=== PATIENT | male | born 1965 | race Caucasian/White ===

== ENCOUNTER 2017-12-20 17:31 | Observation (INO) | payer BC, OTHER ==
[2017-12-20] MEDS ORDERED: Sodium Chloride 0.9% 10 ML Syringe FLUSH PRN (17:56)
[2017-12-20] MEDS ORDERED: Acetaminophen 325 MG Tab PO PRN (17:56)
[2017-12-20] MEDS ORDERED: Albuterol/Ipratropium 3.0-0.5 MG/3 ML Neb Soln NEB PRN (17:56)
[2017-12-20] MEDS ORDERED: Sodium Chloride 0.9% 2.5 ML Syringe FLUSH PRN (17:56)
--- NOTE | 2017-12-20 18:06 | PCM.HP ---
H&P History of Present Illness - General Admit Problem/Dx: Admission Diagnosis/Problem Admission Diagnosis/Problem Hyponatremia - Related Data Allergies/Adverse Reactions: Allergies Allergy/AdvReac Type Severity Reaction Status Date / Time No Known Allergies Allergy Verified 12/20/17 17:46 Home Medications: Home Meds Losartan/Hydrochlorothiazide [Losartan-HCTZ 100-25 MG] 100 mg PO DAILY 12/20/17 [History] Sildenafil [Viagra] 100 mg PO DAILY PRN MDD 100 mg 12/20/17 [History] amLODIPine [Norvasc] 10 mg PO DAILY 12/20/17 [History] Exam - Vital Signs Weight: 189 lb Orders Last 24hrs: Active Orders 24 hr Category Date Time Status Patient Status [ADT] Routine ADT 12/20/17 17:56 Ordered Oxygen Therapy [RC] PRN Care 12/20/17 17:56 Ordered Pulse Oximetry [RC] PRN Care 12/20/17 17:58 Ordered RT Aerosol Therapy [RC] ASDIRECTED Care 12/20/17 18:04 Ordered Up ad Eileen [RC] ASDIRECTED Care 12/20/17 17:56 Ordered VTE/DVT Education [RC] PER UNIT ROUTINE Care 12/20/17 17:56 Ordered Vital Signs [RC] Q4H Care 12/20/17 17:56 Ordered Regular Diet [DIET] Diet 12/20/17 Dinner Ordered Chest 1V Frontal [CR] Routine Exams 12/20/17 17:56 Ordered CBC WITH AUTO DIFF [HEME] Routine Lab 12/20/17 17:56 Ordered COMPREHENSIVE METABOLIC PN,CMP [CHEM] Routine Lab 12/20/17 17:56 Ordered TSH [CHEM] Routine Lab 12/20/17 18:06 Ordered Acetaminophen [Tylenol] Med 12/20/17 17:56 Ordered 650 mg PO Q4H PRN Albuterol/Ipratropium [DuoNeb 3.0-0.5 MG/3 ML] Med 12/20/17 17:56 Ordered 3 ml NEB Q4HRRT PRN Docusate Sodium/Sennosides [Senna Plus] Med 12/20/17 17:56 Ordered 1 tab PO BID PRN Enoxaparin [Lovenox] Med 12/20/17 18:00 Ordered 40 mg SUBCUT Q24H Losartan [Cozaar] Med 12/21/17 09:00 Ordered 100 mg PO DAILY Sodium Chloride 0.9% [Saline Flush] Med 12/20/17 17:56 Ordered 10 ml FLUSH ASDIRECTED PRN Sodium Chloride 0.9% [Saline Flush] Med 12/20/17 17:56 Ordered 2.5 ml FLUSH ASDIRECTED PRN amLODIPine [Norvasc] Med 12/21/17 09:00 Ordered 10 mg PO DAILY Peripheral IV Insertion Adult [OM.PC] Routine Oth 12/20/17 17:56 Ordered Resuscitation Status Routine Resus Stat 12/20/17 17:56 Ordered Medication Orders Acetaminophen (Tylenol) 650 mg PO Q4H PRN PRN Reason: Pain (Mild 1-3)/fever Albuterol/Ipratropium (Duoneb 3.0-0.5 Mg/3 Ml) 3 ml NEB Q4HRRT PRN PRN Reason: Shortness Of Breath/wheezing Amlodipine Besylate (Norvasc) 10 mg PO DAILY ANNAMARIA Senna/Docusate Sodium (Senna Plus) 1 tab PO BID PRN PRN Reason: Constipation
[2017-12-20 18:28] LABS: CHLORIDE,CL 86 mmol/L (98-107); SODIUM,NA 122 mmol/L (136-148)
[2017-12-20] MEDS ORDERED: Sodium Chloride 0.9% 1,000 ML IV SCH (18:45)
[2017-12-20] MEDS ORDERED: Enoxaparin 40 MG/0.4 ML Syringe SUBCUT SCH (19:00)
--- NOTE | 2017-12-20 19:35 | PCM.HP ---
H&P History of Present Illness - General Admit Problem/Dx: Admission Diagnosis/Problem Admission Diagnosis/Problem Hyponatremia Patient 52 y old man presented to Hospital sent from his doctor office due to hyponatriemia on the blood work at 124 and hypokaliemia K 3.3. Patient drinks few beers every evening and it is on hydrochlorothiazide at home 12.5 mg po daily for hypertension. His baseline sodium is in 130' but he reports having hyponatriemia when he was in [facility] and had a shoulder surgery , right shoulder where he was treated with iv NS.His is concerned about him having episodes of confusion or starring . His father of malignant brain tumor and his mother of Alzheimer disease. Had a very close younger brother who recently of [place]. Source of Information: Patient History Limitations: Reports: No Limitations - History of Present Illness Onset of Symptoms: Reports: Today - Related Data Allergies/Adverse Reactions: Allergies Allergy/AdvReac Type Severity Reaction Status Date / Time No Known Allergies Allergy Verified 12/20/17 17:46 Home Medications: Home Meds Losartan/Hydrochlorothiazide [Losartan-HCTZ 100-25 MG] 100 mg PO DAILY 12/20/17 [History] Sildenafil [Viagra] 100 mg PO DAILY PRN MDD 100 mg 12/20/17 [History] amLODIPine [Norvasc] 10 mg PO DAILY 12/20/17 [History] Past Medical History Cardiovascular History: Reports: Hypertension - Past Surgical History Male Surgical History: Reports: None Social & Family History - Family History HEENT: Reports: None Cardiac: Reports: Hypertension Respiratory: Reports: None GI: Reports: None : Reports: None Musculoskeletal: Reports: None Neurological: Reports: None Psychiatric: Reports: None Endocrine/Metabolic: Reports: None Hematologic: Reports: None Immunologic: Reports: None Dermatologic: Reports: None Oncologic: Reports: Brain - Tobacco Use Smoking Status *Q: Former Smoker Years of Tobacco use: 9 Used Tobacco, but Quit: Yes Month/Year Tobacco Last Used: 09/2007 - Caffeine Use Caffeine Use: Reports: Coffee, Soda - Alcohol Use Days Per Week of Alcohol Use: 7 Number of Drinks Per Day: 6 Total Drinks Per Week: 42 Date of Last Drink: 12/19/17 Time of Last Drink: 21:00 - Recreational Drug Use Recreational Drug Use: No H&P Review of Systems - Review of Systems: Review Of Systems: See Below General: Reports: No Symptoms HEENT: Reports: No Symptoms Pulmonary: Reports: No Symptoms Cardiovascular: Reports: No Symptoms Gastrointestinal: Reports: No Symptoms Genitourinary: Reports: No Symptoms Musculoskeletal: Reports: No Symptoms Skin: Reports: No Symptoms Neurological: Reports: Confusion (occasional confusion) Hematologic/Lymphatic: Reports: No Symptoms Immunologic: Reports: No Symptoms Exam - Exam Exam: See Below - Vital Signs Vital Signs: Last Vital Signs Temp 98.4 F 12/20/17 17:56 Pulse 85 12/20/17 17:56 Resp 17 12/20/17 17:56 BP 122/78 12/20/17 17:56 Pulse Ox 95 12/20/17 17:56 Weight: 189 lb - Exam General: Alert, Oriented HEENT: Conjunctiva Clear Neck: Supple, Trachea Midline Lungs: Clear to Auscultation Cardiovascular: Regular Rate, Regular Rhythm, Normal S1, Normal S2 GI/Abdominal Exam: Normal Bowel Sounds Back Exam: Normal Inspection Extremities: Normal Inspection - Patient Data Lab Results Last 24 hrs: Laboratory Results - last 24 hr 12/20/17 12/20/17 12/20/17 Range/Units 17:55 17:55 17:55 WBC 7.74 (4.0-11.0) K/uL RBC 4.29 L (4.50-5.90) M/uL Hgb 14.7 (13.0-17.0) g/dL Hct 39.9 (38.0-50.0) % MCV 93.0 (80.0-98.0) fL MCH 34.3 H (27.0-32.0) pg MCHC 36.8 (31.0-37.0) g/dL RDW Std Deviation 43.0 (28.0-62.0) fl RDW Coeff of [place] 13 (11.0-15.0) % Plt Count 301 (150-400) K/uL MPV 9.00 (7.40-12.00) fL Neut % (Auto) 54.2 (48.0-80.0) % Lymph % (Auto) 27.5 (16.0-40.0) % [place] % (Auto) 15.4 H (0.0-15.0) % Eos % (Auto) 2.3 (0.0-7.0) % Baso % (Auto) 0.6 (0.0-1.5) % Neut # (Auto) 4.2 (1.4-5.7) K/uL Lymph # (Auto) 2.1 (0.6-2.4) K/uL [place] # (Auto) 1.2 H (0.0-0.8) K/uL Eos # (Auto) 0.2 (0.0-0.7) K/uL Baso # (Auto) 0.1 (0.0-0.1) K/uL Nucleated RBC % 0.0 /100WBC Nucleated RBCs # 0 K/uL Sodium 122 L (136-148) mmol/L Potassium 3.0 L (3.5-5.1) mmol/L Chloride 86 L (98-107) mmol/L Carbon Dioxide 25.1 (21.0-32.0) mmol/L BUN 2 L (7.0-18.0) mg/dL Creatinine 0.5 L (0.8-1.3) mg/dL Est Cr Clr Drug Dosing 174.39 mL/min Estimated GFR (MDRD) > 60.0 ml/min Glucose 105 (74-106) mg/dL Calcium 8.7 (8.5-10.1) mg/dL Phosphorus (2.6-4.7) mg/dL Magnesium (1.5-2.0) mg/dL Total Bilirubin 0.4 (0.2-1.0) mg/dL AST 33 (15-37) IU/L ALT 29 (14-63) IU/L Alkaline Phosphatase 57 (46-116) U/L Total Protein 7.7 (6.4-8.2) g/dL Albumin 4.1 (3.4-5.0) g/dL Globulin 3.6 H (2.0-3.5) g/dL Albumin/Globulin Ratio 1.1 L (1.3-2.8) Vitamin B12 (193-986) pg/mL Folate (8.60-58.90) ng/mL TSH 3rd Generation 1.77 (0.36-3.74) uIU/mL Ur Random Sodium (40.0-220.0) mmol/L 12/20/17 12/20/17 12/20/17 Range/Units 17:55 17:55 17:55 WBC (4.0-11.0) K/uL RBC (4.50-5.90) M/uL Hgb (13.0-17.0) g/dL Hct (38.0-50.0) % MCV (80.0-98.0) fL MCH (27.0-32.0) pg MCHC (31.0-37.0) g/dL RDW Std Deviation (28.0-62.0) fl RDW Coeff of [place] (11.0-15.0) % Plt Count (150-400) K/uL MPV (7.40-12.00) fL Neut % (Auto) (48.0-80.0) % Lymph % (Auto) (16.0-40.0) % [place] % (Auto) (0.0-15.0) % Eos % (Auto) (0.0-7.0) % Baso % (Auto) (0.0-1.5) % Neut # (Auto) (1.4-5.7) K/uL Lymph # (Auto) (0.6-2.4) K/uL [place] # (Auto) (0.0-0.8) K/uL Eos # (Auto) (0.0-0.7) K/uL Baso # (Auto) (0.0-0.1) K/uL Nucleated RBC % /100WBC Nucleated RBCs # K/uL Sodium (136-148) mmol/L Potassium (3.5-5.1) mmol/L Chloride (98-107) mmol/L Carbon Dioxide (21.0-32.0) mmol/L BUN (7.0-18.0) mg/dL Creatinine (0.8-1.3) mg/dL Est Cr Clr Drug Dosing mL/min Estimated GFR (MDRD) ml/min Glucose (74-106) mg/dL Calcium (8.5-10.1) mg/dL Phosphorus 3.6 (2.6-4.7) mg/dL Magnesium 1.6 (1.5-2.0) mg/dL Total Bilirubin (0.2-1.0) mg/dL AST (15-37) IU/L ALT (14-63) IU/L Alkaline Phosphatase (46-116) U/L Total Protein (6.4-8.2) g/dL Albumin (3.4-5.0) g/dL Globulin (2.0-3.5) g/dL Albumin/Globulin Ratio (1.3-2.8) Vitamin B12 327 (193-986) pg/mL Folate 12.40 (8.60-58.90) ng/mL TSH 3rd Generation (0.36-3.74) uIU/mL Ur Random Sodium (40.0-220.0) mmol/L 12/20/17 Range/Units 18:47 WBC (4.0-11.0) K/uL RBC (4.50-5.90) M/uL Hgb (13.0-17.0) g/dL Hct (38.0-50.0) % MCV (80.0-98.0) fL MCH (27.0-32.0) pg MCHC (31.0-37.0) g/dL RDW Std Deviation (28.0-62.0) fl RDW Coeff of [place] (11.0-15.0) % Plt Count (150-400) K/uL MPV (7.40-12.00) fL Neut % (Auto) (48.0-80.0) % Lymph % (Auto) (16.0-40.0) % [place] % (Auto) (0.0-15.0) % Eos % (Auto) (0.0-7.0) % Baso % (Auto) (0.0-1.5) % Neut # (Auto) (1.4-5.7) K/uL Lymph # (Auto) (0.6-2.4) K/uL [place] # (Auto) (0.0-0.8) K/uL Eos # (Auto) (0.0-0.7) K/uL Baso # (Auto) (0.0-0.1) K/uL Nucleated RBC % /100WBC Nucleated RBCs # K/uL Sodium (136-148) mmol/L Potassium (3.5-5.1) mmol/L Chloride (98-107) mmol/L Carbon Dioxide (21.0-32.0) mmol/L BUN (7.0-18.0) mg/dL Creatinine (0.8-1.3) mg/dL Est Cr Clr Drug Dosing mL/min Estimated GFR (MDRD) ml/min Glucose (74-106) mg/dL Calcium (8.5-10.1) mg/dL Phosphorus (2.6-4.7) mg/dL Magnesium (1.5-2.0) mg/dL Total Bilirubin (0.2-1.0) mg/dL AST (15-37) IU/L ALT (14-63) IU/L Alkaline Phosphatase (46-116) U/L Total Protein (6.4-8.2) g/dL Albumin (3.4-5.0) g/dL Globulin (2.0-3.5) g/dL Albumin/Globulin Ratio (1.3-2.8) Vitamin B12 (193-986) pg/mL Folate (8.60-58.90) ng/mL TSH 3rd Generation (0.36-3.74) uIU/mL Ur Random Sodium 11.0 L (40.0-220.0) mmol/L Result Diagrams: 12/20/17 17:55 12/20/17 17:55 - Problem List (1) Hyponatremia SNOMED Code(s): 30244366 ICD Code: E87.1 - HYPO-OSMOLALITY AND HYPONATREMIA Status: Acute Current Visit: Yes (2) Hypokalemia SNOMED Code(s): 29500181 ICD Code: E87.6 - HYPOKALEMIA Status: Acute Current Visit: Yes (3) Hypertension SNOMED Code(s): 14802932 ICD Code: I10 - ESSENTIAL (PRIMARY) HYPERTENSION Status: Acute Current Visit: Yes Problem List Initiated/Reviewed/Updated: Yes Orders Last 24hrs: Active Orders 24 hr Category Date Time Status Patient Status [ADT] Routine ADT 12/20/17 17:56 Active Communication Order [RC] ROUTINE Care 12/20/17 18:52 Active Oxygen Therapy [RC] PRN Care 12/20/17 17:56 Active Pulse Oximetry [RC] PRN Care 12/20/17 17:58 Active RT Aerosol Therapy [RC] ASDIRECTED Care 12/20/17 18:04 Active Up ad Eileen [RC] ASDIRECTED Care 12/20/17 17:56 Active Vital Signs [RC] Q4H Care 12/20/17 17:56 Active Regular Diet [DIET] Diet 12/20/17 Dinner Active Chest 1V Frontal [CR] Routine Exams 12/20/17 17:56 Taken Head wo Cont [CT] Routine Exams 12/20/17 18:42 Taken OSMOLALITY - SERUM [REF] Stat Lab 12/20/17 17:55 Received OSMOLALITY - URINE Stat Lab 12/20/17 18:47 Received Acetaminophen [Tylenol] Med 12/20/17 17:56 Active 650 mg PO Q4H PRN Albuterol/Ipratropium [DuoNeb 3.0-0.5 MG/3 ML] Med 12/20/17 17:56 Active 3 ml NEB Q4HRRT PRN Docusate Sodium/Sennosides [Senna Plus] Med 12/20/17 17:56 Active 1 tab PO BID PRN Enoxaparin [Lovenox] Med 12/20/17 19:00 Active 40 mg SUBCUT Q24H Hydrochlorothiazide Med 12/21/17 09:00 Active 25 mg PO DAILY Losartan [Cozaar] Med 12/21/17 09:00 Active 100 mg PO DAILY Potassium Chloride [Klor-Con M20] Med 12/20/17 21:00 Active 40 meq PO BID Sodium Chloride 0.9% [Normal Saline] 1,000 ml Med 12/20/17 18:45 Active IV ASDIRECTED Sodium Chloride 0.9% [Saline Flush] Med 12/20/17 17:56 Active 10 ml FLUSH ASDIRECTED PRN Sodium Chloride 0.9% [Saline Flush] Med 12/20/17 17:56 Active 2.5 ml FLUSH ASDIRECTED PRN amLODIPine [Norvasc] Med 12/21/17 09:00 Active 10 mg PO DAILY Peripheral IV Insertion Adult [OM.PC] Routine Oth 12/20/17 17:56 Ordered Resuscitation Status Routine Resus Stat 12/20/17 17:56 Ordered Medication Orders Acetaminophen (Tylenol) 650 mg PO Q4H PRN PRN Reason: Pain (Mild 1-3)/fever Albuterol/Ipratropium (Duoneb 3.0-0.5 Mg/3 Ml) 3 ml NEB Q4HRRT PRN PRN Reason: Shortness Of Breath/wheezing Amlodipine Besylate (Norvasc) 10 mg PO DAILY ANNAMARIA Enoxaparin Sodium (Lovenox) 40 mg SUBCUT Q24H [facility] Last Admin: 12/20/17 18:58 Dose: 40 mg Hydrochlorothiazide (Hydrochlorothiazide) 25 mg PO DAILY [facility] Sodium Chloride (Normal Saline) 1,000 mls @ 9,999 mls/hr IV ASDIRECTED [facility] Last Admin: 12/20/17 18:56 Dose: 9,999 mls/hr Losartan Potassium (Cozaar) 100 mg PO DAILY [facility] Potassium Chloride (Klor-Con M20) 40 meq PO BID [facility] Stop: 12/21/17 21:01 Senna/Docusate Sodium (Senna Plus) 1 tab PO BID PRN PRN Reason: Constipation Sodium Chloride (Saline Flush) 10 ml FLUSH ASDIRECTED PRN PRN Reason: Keep Vein Open Sodium Chloride (Saline Flush) 2.5 ml FLUSH ASDIRECTED PRN PRN Reason: Keep Vein Open Assessment and plan Hyponatriemia/ hypokaliemia- patient is hypovolemic-will supplement k with KCl 40 Rain po BID , his electrolytes disturbances are likely from beer drinking , will give patient normal saline iv bolus 1000 cc and Will recheck sodium level. Will check magnesium and phosphorus level and will supplement as needed. Will order plasma and urine osmolality and the urinary Na level, will order cxr and CT head. Confusion occasionally- will order the B12 level , folic acid level and Ct of head , patient was adviced to stop drinking Dvt profilaxis- heparin sq
[2017-12-20] MEDS: Potassium Chloride 20 MEQ Tab.ER PO SCH (20:06)
[2017-12-20] MEDS ORDERED: Folic Acid/Vitamin B Complex With C Cap PO SCH (20:15)
[2017-12-20] MEDS ORDERED: Thiamine 100 MG Tab PO SCH (21:00)
[2017-12-20] MEDS ORDERED: Folic Acid 1 MG Tab PO SCH ×2 (21:37→21:40)
[2017-12-20 22:48] LABS: CHLORIDE,CL 92 mmol/L (98-107); SODIUM,NA 127 mmol/L (136-148)
[2017-12-20] MEDS ORDERED: Potassium Chloride 20 MEQ Tab.ER PO STA (23:16)
[2017-12-21] MEDS: Potassium Chloride 20 MEQ Tab.ER PO SCH (08:24)
[2017-12-21] MEDS: amLODIPine 5 MG Tab PO SCH ×2 (08:25→08:27)
[2017-12-21 08:30] LABS: CHLORIDE,CL 101 mmol/L (98-107); SODIUM,NA 133 mmol/L (136-148)
[2017-12-21] MEDS ORDERED: Hydrochlorothiazide 25 MG Tab PO SCH (09:00)
[2017-12-21] MEDS ORDERED: Losartan 50 MG Tab PO SCH (09:00)
--- NOTE | 2017-12-21 11:34 | PCM.DCSUM1 ---
Discharge Summary - Hospital Course Free Text/Narrative:: Patient admitted in the hospital with hyponatriemia at 124 , k is 3.2 . He was sent from clinic as direct admit. Patient drinks beer every evening and also he is on HCTZ. He had hyponatriemia before and was treated with Ns iv. In hospital he looked hypovolemic and was given NS, hctz was helt , K was supplemented. K dropped to a critical low 2.9 and he was p[laced on telemetry. His reports him starring and confused sometimes. Cxr , Ct of the head was ordered, TSh was nl Patient Na and K corrected. His B12 level was relatively low and he was discharged home with supplemental B12 po , f/up repeat level in 2 weeks. he was also given home folic acid 1 mg po and thiamine 100 mg po daily was advised to stop drinking beer. F/up[ plasma osmolality , UA osmolality - Discharge Data Discharge Date: 12/21/17 Discharge Disposition: Home, Self-Care 01 Condition: Good - Discharge Diagnosis/Problem(s) (1) Hyponatremia SNOMED Code(s): 23508379 ICD Code: E87.1 - HYPO-OSMOLALITY AND HYPONATREMIA Status: Acute (2) Hypokalemia SNOMED Code(s): 46106885 ICD Code: E87.6 - HYPOKALEMIA Status: Acute (3) Hypertension SNOMED Code(s): 07644497 ICD Code: I10 - ESSENTIAL (PRIMARY) HYPERTENSION Status: Acute - Patient Instructions Diet: Regular Diet as Tolerated, No Alcoholic Beverages Activity: As Tolerated Driving: May Drive Today Showering/Bathing: May Shower - Discharge Plan Prescriptions/Med Rec: Cyanocobalamin/Folic Acid [Vitamin C14-Xddms Acid] 1 each PO DAILY 30 Days #30 tablet Losartan [Cozaar] 100 mg PO DAILY 90 Days #90 tablet Thiamine Mononitrate [Vitamin B-1] 100 mg PO DAILY 30 Days #30 tablet Home Medications: Home Meds Sildenafil [Viagra] 100 mg PO DAILY PRN MDD 100 mg 12/20/17 [History] amLODIPine [Norvasc] 10 mg PO DAILY 12/20/17 [History] Cyanocobalamin/Folic Acid [Vitamin J78-Frmac Acid] 1 each PO DAILY 30 Days #30 tablet 12/21/17 [Rx] Losartan [Cozaar] 100 mg PO DAILY 90 Days #90 tablet 12/21/17 [Rx] Thiamine Mononitrate [Vitamin B-1] 100 mg PO DAILY 30 Days #30 tablet 12/21/17 [ Rx] Patient Handouts: Hyponatremia, [id number] Referrals: [facility] [Outside] Rosalee Garcia NP [Ordering Only Provider] - 12/31/17 8:00 am - General Info Date of Service: 12/21/17 - Review of Systems General: Reports: No Symptoms HEENT: Reports: No Symptoms Pulmonary: Reports: No Symptoms Cardiovascular: Reports: No Symptoms Gastrointestinal: Reports: No Symptoms Genitourinary: Reports: No Symptoms Musculoskeletal: Reports: No Symptoms Skin: Reports: No Symptoms Neurological: Reports: No Symptoms Psychiatric: Reports: No Symptoms - Patient Data Vitals - Most Recent: Last Vital Signs Temp 98.8 F 12/21/17 08:00 Pulse 86 12/21/17 08:00 Resp 18 12/21/17 08:00 BP 149/89 H 12/21/17 08:27 Pulse Ox 96 12/21/17 08:00 Weight - Most Recent: 189 lb I&O - Last 24 hours: Intake & Output 12/20/17 12/21/17 12/21/17 22:59 06:59 14:59 Intake Total 1000 1061 Output Total 1200 Balance 1000 -139 Lab Results - Last 24 hrs: Laboratory Results - last 24 hr 12/20/17 12/20/17 12/20/17 Range/Units 17:55 17:55 17:55 WBC 7.74 (4.0-11.0) K/uL RBC 4.29 L (4.50-5.90) M/uL Hgb 14.7 (13.0-17.0) g/dL Hct 39.9 (38.0-50.0) % MCV 93.0 (80.0-98.0) fL MCH 34.3 H (27.0-32.0) pg MCHC 36.8 (31.0-37.0) g/dL RDW Std Deviation 43.0 (28.0-62.0) fl RDW Coeff of [place] 13 (11.0-15.0) % Plt Count 301 (150-400) K/uL MPV 9.00 (7.40-12.00) fL Neut % (Auto) 54.2 (48.0-80.0) % Lymph % (Auto) 27.5 (16.0-40.0) % [place] % (Auto) 15.4 H (0.0-15.0) % Eos % (Auto) 2.3 (0.0-7.0) % Baso % (Auto) 0.6 (0.0-1.5) % Neut # (Auto) 4.2 (1.4-5.7) K/uL Lymph # (Auto) 2.1 (0.6-2.4) K/uL [place] # (Auto) 1.2 H (0.0-0.8) K/uL Eos # (Auto) 0.2 (0.0-0.7) K/uL Baso # (Auto) 0.1 (0.0-0.1) K/uL Nucleated RBC % 0.0 /100WBC Nucleated RBCs # 0 K/uL Sodium 122 L (136-148) mmol/L Potassium 3.0 L (3.5-5.1) mmol/L Chloride 86 L (98-107) mmol/L Carbon Dioxide 25.1 (21.0-32.0) mmol/L BUN 2 L (7.0-18.0) mg/dL Creatinine 0.5 L (0.8-1.3) mg/dL Est Cr Clr Drug Dosing 174.39 mL/min Estimated GFR (MDRD) > 60.0 ml/min Glucose 105 (74-106) mg/dL Calcium 8.7 (8.5-10.1) mg/dL Phosphorus (2.6-4.7) mg/dL Magnesium (1.5-2.0) mg/dL Total Bilirubin 0.4 (0.2-1.0) mg/dL AST 33 (15-37) IU/L ALT 29 (14-63) IU/L Alkaline Phosphatase 57 (46-116) U/L Total Protein 7.7 (6.4-8.2) g/dL Albumin 4.1 (3.4-5.0) g/dL Globulin 3.6 H (2.0-3.5) g/dL Albumin/Globulin Ratio 1.1 L (1.3-2.8) Vitamin B12 (193-986) pg/mL Folate (8.60-58.90) ng/mL TSH 3rd Generation 1.77 (0.36-3.74) uIU/mL Ur Random Sodium (40.0-220.0) mmol/L 12/20/17 12/20/17 12/20/17 Range/Units 17:55 17:55 17:55 WBC (4.0-11.0) K/uL RBC (4.50-5.90) M/uL Hgb (13.0-17.0) g/dL Hct (38.0-50.0) % MCV (80.0-98.0) fL MCH (27.0-32.0) pg MCHC (31.0-37.0) g/dL RDW Std Deviation (28.0-62.0) fl RDW Coeff of [place] (11.0-15.0) % Plt Count (150-400) K/uL MPV (7.40-12.00) fL Neut % (Auto) (48.0-80.0) % Lymph % (Auto) (16.0-40.0) % [place] % (Auto) (0.0-15.0) % Eos % (Auto) (0.0-7.0) % Baso % (Auto) (0.0-1.5) % Neut # (Auto) (1.4-5.7) K/uL Lymph # (Auto) (0.6-2.4) K/uL [place] # (Auto) (0.0-0.8) K/uL Eos # (Auto) (0.0-0.7) K/uL Baso # (Auto) (0.0-0.1) K/uL Nucleated RBC % /100WBC Nucleated RBCs # K/uL Sodium (136-148) mmol/L Potassium (3.5-5.1) mmol/L Chloride (98-107) mmol/L Carbon Dioxide (21.0-32.0) mmol/L BUN (7.0-18.0) mg/dL Creatinine (0.8-1.3) mg/dL Est Cr Clr Drug Dosing mL/min Estimated GFR (MDRD) ml/min Glucose (74-106) mg/dL Calcium (8.5-10.1) mg/dL Phosphorus 3.6 (2.6-4.7) mg/dL Magnesium 1.6 (1.5-2.0) mg/dL Total Bilirubin (0.2-1.0) mg/dL AST (15-37) IU/L ALT (14-63) IU/L Alkaline Phosphatase (46-116) U/L Total Protein (6.4-8.2) g/dL Albumin (3.4-5.0) g/dL Globulin (2.0-3.5) g/dL Albumin/Globulin Ratio (1.3-2.8) Vitamin B12 327 (193-986) pg/mL Folate 12.40 (8.60-58.90) ng/mL TSH 3rd Generation (0.36-3.74) uIU/mL Ur Random Sodium (40.0-220.0) mmol/L 12/20/17 12/20/17 12/21/17 Range/Units 18:47 22:26 08:09 WBC (4.0-11.0) K/uL RBC (4.50-5.90) M/uL Hgb (13.0-17.0) g/dL Hct (38.0-50.0) % MCV (80.0-98.0) fL MCH (27.0-32.0) pg MCHC (31.0-37.0) g/dL RDW Std Deviation (28.0-62.0) fl RDW Coeff of [place] (11.0-15.0) % Plt Count (150-400) K/uL MPV (7.40-12.00) fL Neut % (Auto) (48.0-80.0) % Lymph % (Auto) (16.0-40.0) % [place] % (Auto) (0.0-15.0) % Eos % (Auto) (0.0-7.0) % Baso % (Auto) (0.0-1.5) % Neut # (Auto) (1.4-5.7) K/uL Lymph # (Auto) (0.6-2.4) K/uL [place] # (Auto) (0.0-0.8) K/uL Eos # (Auto) (0.0-0.7) K/uL Baso # (Auto) (0.0-0.1) K/uL Nucleated RBC % /100WBC Nucleated RBCs # K/uL Sodium 127 L 133 L (136-148) mmol/L Potassium 2.9 L 4.2 (3.5-5.1) mmol/L Chloride 92 L 101 (98-107) mmol/L Carbon Dioxide 25.7 28.1 (21.0-32.0) mmol/L BUN 3 L 4 L (7.0-18.0) mg/dL Creatinine 0.6 L 0.6 L (0.8-1.3) mg/dL Est Cr Clr Drug Dosing 145.32 145.32 mL/min Estimated GFR (MDRD) > 60.0 > 60.0 ml/min Glucose 95 128 H (74-106) mg/dL Calcium 8.5 8.6 (8.5-10.1) mg/dL Phosphorus (2.6-4.7) mg/dL Magnesium (1.5-2.0) mg/dL Total Bilirubin (0.2-1.0) mg/dL AST (15-37) IU/L ALT (14-63) IU/L Alkaline Phosphatase (46-116) U/L Total Protein (6.4-8.2) g/dL Albumin (3.4-5.0) g/dL Globulin (2.0-3.5) g/dL Albumin/Globulin Ratio (1.3-2.8) Vitamin B12 (193-986) pg/mL Folate (8.60-58.90) ng/mL TSH 3rd Generation (0.36-3.74) uIU/mL Ur Random Sodium 11.0 L (40.0-220.0) mmol/L Med Orders - Current: Current Medications Discontinued Medications Acetaminophen (Tylenol) 650 mg PO Q4H PRN PRN Reason: Pain (Mild 1-3)/fever Albuterol/Ipratropium (Duoneb 3.0-0.5 Mg/3 Ml) 3 ml NEB Q4HRRT PRN PRN Reason: Shortness Of Breath/wheezing Amlodipine Besylate (Norvasc) 10 mg PO DAILY [facility] Last Admin: 12/21/17 08:27 Dose: 5 mg Enoxaparin Sodium (Lovenox) 40 mg SUBCUT Q24H [facility] Last Admin: 12/20/17 18:58 Dose: 40 mg Folic Acid (Folic Acid) 1 mg PO BEDTIME [facility] Folic Acid (Folic Acid) 1 mg PO BEDTIME [facility] Folic Acid (Folic Acid) 1 mg PO BEDTIME [facility] Last Admin: 12/20/17 21:56 Dose: 1 mg Hydrochlorothiazide (Hydrochlorothiazide) 25 mg PO DAILY [facility] Last Admin: 12/21/17 08:25 Dose: 25 mg Sodium Chloride (Normal Saline) 1,000 mls @ 9,999 mls/hr IV ASDIRECTED [facility] Last Admin: 12/20/17 18:56 Dose: 9,999 mls/hr Potassium Chloride 40 meq/ (Sodium Chloride) 1,020 mls @ 125 mls/hr IV ONETIME ONE Stop: 12/21/17 07:25 Last Admin: 12/21/17 00:00 Dose: 125 mls/hr Losartan Potassium (Cozaar) 100 mg PO DAILY [facility] Last Admin: 12/21/17 08:25 Dose: 100 mg Multivit/Ca Carb/B Cmplx/FA/Prenat (Renal Caps Softgel) 1 cap PO DAILY [facility] Last Admin: 12/20/17 21:25 Dose: Not Given Potassium Chloride (Klor-Con M20) 40 meq PO BID [place]NAMAR[place] Stop: 12/21/17 21:01 Last Admin: 12/21/17 08:24 Dose: 40 meq Potassium Chloride (Klor-Con M20) 40 meq PO ONETIME STA Stop: 12/20/17 23:17 Last Admin: 12/21/17 00:01 Dose: 40 meq Senna/Docusate Sodium (Senna Plus) 1 tab PO BID PRN PRN Reason: Constipation Sodium Chloride (Saline Flush) 10 ml FLUSH ASDIRECTED PRN PRN Reason: Keep Vein Open Sodium Chloride (Saline Flush) 2.5 ml FLUSH ASDIRECTED PRN PRN Reason: Keep Vein Open Thiamine HCl (Vitamin B-1) 100 mg PO BEDTIME [facility] Last Admin: 12/20/17 21:19 Dose: 100 mg - Exam General: Reports: Alert, Oriented HEENT: Reports: Pupils Equal, Pupils Reactive Neck: Reports: Supple, Trachea Midline Lungs: Reports: Clear to Auscultation, Normal Respiratory Effort Cardiovascular: Reports: Regular Rate, Regular Rhythm, No Murmurs Skin: Reports: Warm, Dry Psy/Mental Status: Reports: Alert, Normal Affect
--- NOTE | 2017-12-21 15:51 | CT ---
EXAM DATE: 12/20/17 PATIENT'S AGE: 52 Patient: STEVENSON MCINTYRE Facility: [place], [place] Site . Site : 1965 Study: CT Head WO CONT [id number]/2018 7:08:24 PM Ordering Physician: Rafael Moralez Final Report: INDICATION: OCC CONFUSION, HYPONATREMIA CT HEAD WITHOUT CONTRAST TECHNIQUE: Multiple axial CT images were performed through the head without intravenous contrast administration. COMPARISON: No previous studies are currently available for comparison. FINDINGS: No acute intracranial hemorrhage is identified. No extra-axial collections are evident and there is no mass effect or midline shift. Ventricles are normal in size and configuration. Brain parenchyma appears normal with unremarkable sullivan-white differentiation. Osseous structures are within normal limits and no fractures are seen. Included portions of the paranasal sinuses show postoperative changes involving the maxillary and ethmoid sinuses, scattered sinus mucosal thickening which is greatest in the ethmoid air cells, and a small amount of fluid in the left maxillary sinus suggesting acute sinusitis. Mastoid air cells are normally aerated. IMPRESSION: 1. No acute intracranial abnormality identified. 2. Paranasal sinus changes as noted above. LLOYD ELIZABETH MD [employer] [facility] Dictated by Severo Elizabeth MD @ 12/20/2017 7:24:27 PM Dictated by: Severo Elizabeth MD @ 12/20/2017 19:24:46 (Electronic Signature) Report Signed by Proxy. [facility]
--- NOTE | 2017-12-21 15:52 | CR ---
EXAM DATE: 12/20/17 PATIENT'S AGE: 52 Patient: STEVENSON MCINTYRE Facility: [place], [place] Site . Site : 1965 Study: XRay Chest [id number]/19/2018 7:11:39 PM Ordering Physician: Rafael Moralez Final Report: INDICATION: Hyponatremia. TECHNIQUE: Chest radiograph, 1view COMPARISON: None FINDINGS: Cardiovascular and mediastinum: The heart silhouette is normal in size and morphology. The mediastinum is normal in appearance. Lungs and pleural spaces: Both lungs are unremarkable in appearance. No sign of pleural effusion seen. No pneumothorax is identified. Bones and soft tissues: Right shoulder arthroplasty hardware, partially visualized. IMPRESSION: 1. No acute cardiopulmonary disease is seen. Dictated by Jonnie Lomeli MD @ 12/20/2017 7:30:19 PM Dictated by: Jonnie Lomeli MD @ 12/20/2017 19:30:24 (Electronic Signature) Report Signed by Proxy. [facility]
[2017-12-21] MEDS ORDERED: Folic Acid 1 MG Tab PO SCH (21:00)
== END 2017-12-21 11:31 | disposition home or self-care (01) ==
LOC: MW.MS 17:31
PROVIDERS: ADMIT Internal Medicine; ATTEND Internal Medicine
DX: E87.1 Hypo-osmolality and hyponatremia (principal); E87.6 Hypokalemia; I10 Essential (primary) hypertension; E86.1 Hypovolemia; Z79.899 Other long term (current) drug therapy
CPT/HCPCS: 36415; 70450; 71045; 80048; 80053; 82607; 82746; 83735; 83930; 83935; 84100; 84300; 84443; 85025; A9270; J1650; J3480; J7040; 96372; 96374; G0378; G0379

== ENCOUNTER 2019-01-14 11:02 | Observation (INO) | payer BC, OTHER ==
[2019-01-14] MEDS ORDERED: Aspirin 81 MG Tab.Chew PO ONE (11:16)
[2019-01-14] MEDS ORDERED: Sodium Chloride 0.9% 2.5 ML Syringe FLUSH PRN (11:17)
[2019-01-14] MEDS ORDERED: Sodium Chloride 0.9% 10 ML Syringe FLUSH PRN (11:17)
[2019-01-14] MEDS: Nitroglycerin 0.4 MG Tab.SL SL PRN ×3 (11:26→11:43)
[2019-01-14] MEDS: Metoprolol Tartrate 5 MG/5 ML SDV IVPUSH SCH ×3 (11:31→11:52)
[2019-01-14 11:48] LABS: CHLORIDE,CL 93 mmol/L (98-107); SODIUM,NA 128 mmol/L (136-148)
[2019-01-14] MEDS ORDERED: Morphine 2 MG/ML Syringe IVPUSH ONE (11:48)
[2019-01-14] MEDS ORDERED: Ondansetron 4 MG/2 ML SDV IVPUSH ONE (11:48)
--- NOTE | 2019-01-14 11:54 | CR ---
EXAMINATION: Portable chest radiograph. HISTORY: Shortness of breath. FINDINGS: The trachea is midline. The cardiomediastinal silhouette is within normal limits. No pulmonary infiltrates, effusions or pneumothorax. Osseous structures appear unremarkable. IMPRESSION: No acute cardiopulmonary process.
[2019-01-14] MEDS ORDERED: Sodium Chloride 0.9% 1,000 ML IV ONE (12:07)
[2019-01-14] MEDS ORDERED: Labetalol 20 MG/4 ML Syringe IVPUSH ONE (12:08)
[2019-01-14] MEDS ORDERED: diphenhydrAMINE 50 MG/ML SDV IVPUSH ONE (12:41)
[2019-01-14] MEDS ORDERED: Iopamidol 755 MG/ML 500 ML Multipack Bottle IVPUSH ONE (12:49)
--- NOTE | 2019-01-14 13:12 | CT ---
EXAMINATION: CTA chest, abdomen, and pelvis HISTORY: Pain COMPARISON: None TECHNIQUE: Axial CT imaging obtained through the chest, abdomen, and pelvis following the administration of 100 mL of Isovue-370 in the right antecubital fossa. Coronal and sagittal reconstructions obtained. FINDINGS: Chest: Lungs are clear without focal consolidation. No pleural effusion or pneumothorax. Old right-sided rib fractures. Heart is borderline in size without a pericardial effusion. Thoracic aorta is normal in caliber without evidence of a dissection. Main and central pulmonary arteries appear patent. No mediastinal, hilar, or axillary lymphadenopathy. Moderate coronary artery calcifications. Abdomen: The liver, spleen, adrenal glands, and pancreas appear normal. The gallbladder is normal. No bulky retroperitoneal lymphadenopathy or abdominal ascites. Small fat-containing hiatal hernia versus paraesophageal lipoma. Kidneys enhance and function symmetrically without evidence of obstructive uropathy. Pelvis: The large and small bowel are normal in caliber without evidence of obstruction. No focal pericolonic inflammation or stranding. Moderate diverticulosis. The urinary bladder is normal. No bulky pelvic lymphadenopathy. No free fluid. Urinary bladder is normal. Moderate likely chronic compression deformity of T7. IMPRESSION: 1. No acute findings noted within the chest, abdomen, or pelvis. 2. Moderate coronary artery calcifications. 3. Moderate diverticulosis.
[2019-01-14] MEDS ORDERED: Ondansetron 4 MG/2 ML SDV IVPUSH PRN (14:26)
[2019-01-14] MEDS ORDERED: Acetaminophen 325 MG Tab PO PRN (14:26)
--- NOTE | 2019-01-14 14:28 | PCM.HP ---
H&P History of Present Illness - General Date of Service: 01/14/19 Admit Problem/Dx: Admission Diagnosis/Problem Admission Diagnosis/Problem Hypertensive urgency Source of Information: Patient History Limitations: Reports: No Limitations - History of Present Illness Initial Comments - Free Text/Narative: This 53 year old male with pmh of alcohol overuse, hyponatremia and HTN presented to the ED with complaints of chest pressure and heaviness that he starting experiencing thsi morning when he woke up around 5:30 am. He reports he wasn't feeling when he woke up and then the heaviness started. He reports nothing made the heaviness worse or better. It radiated to his back. Mild diaphoresis and nausea noted with this and he also felt somewhat short of breath as well. He reports nothing like this has happened before. He has been taking Losartan and Amlodipine for 5 years approximately for HTN, BP normally run 140-150/80-90s. He reports he has never had a stress test before. He has been told his sodium is low, normally running around 130. He used to be on HCTZ but this was stopped when Na was noted at 124. 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 He denies recreational drug use. He otherwise has felt well up until this morning. His reports she has started to wonder if he was feeling well, because she was acting like he wasn't feeling well and like when he was initially diagnosed with HTN 5-7 years ago.He reports he has a significant family history of CAD. A borther recently from an [place], his mother had an [place] in her 60s as well as his other brother. He denies DM and no known CAD for him. In the ED CBC WNL. Na 128, Cl 93, glucose 121, troponin negative. EKG noted to have LVH, SR with rates in the 80s. No acute ST segment changes. CXR negative and CT angio negative as well. He was treated with Nitro and Lopressor x 3 doses in the ED, BP initially was noted at 190/100s and was brought down to 160/ 90s. Pain was improved. He was admitted for Chest pain rule out ACS and hypertension. Chest Pain Score (Numeric/FACES): 6 - Related Data Allergies/Adverse Reactions: Allergies Allergy/AdvReac Type Severity Reaction Status Date / Time No Known Allergies Allergy Verified 01/14/19 11:15 Home Medications: Home Meds amLODIPine [Norvasc] 10 mg PO DAILY 12/20/17 [History] Cyanocobalamin/Folic Acid [Vitamin F09-Qewax Acid] 1 each PO DAILY 30 Days #30 tablet 12/21/17 [Rx] Losartan [Cozaar] 100 mg PO DAILY 90 Days #90 tablet 12/21/17 [Rx] Thiamine Mononitrate [Vitamin B-1] 100 mg PO DAILY 30 Days #30 tablet 12/21/17 [ Rx] Past Medical History Cardiovascular History: Reports: Hypertension. Denies: Afib, Blood Clots/VTE/ DVT, CAD, [place] Respiratory History: Reports: None. Denies: Asthma, COPD Gastrointestinal History: Reports: None Genitourinary History: Reports: None. Denies: Chronic Renal Insuffiency Musculoskeletal History: Reports: None Neurological History: Reports: None. Denies: CVA, TIA Psychiatric History: Reports: None Endocrine/Metabolic History: Reports: None. Denies: Diabetes, Type II, Hypothyroidism Hematologic History: Reports: None - Past Surgical History HEENT Surgical History: Reports: Adenoidectomy, Tonsillectomy GI Surgical History: Reports: Appendectomy Male Surgical History: Reports: None Social & Family History - Family History HEENT: Reports: None Cardiac: Reports: Hypertension Respiratory: Reports: None GI: Reports: None : Reports: None Musculoskeletal: Reports: None Neurological: Reports: None Psychiatric: Reports: None Endocrine/Metabolic: Reports: None Hematologic: Reports: None Immunologic: Reports: None Dermatologic: Reports: None Oncologic: Reports: Brain - Tobacco Use Smoking Status *Q: Never Smoker - Caffeine Use Caffeine Use: Reports: Coffee - Alcohol Use Days Per Week of Alcohol Use: 7 Number of Drinks Per Day: 6 Total Drinks Per Week: 42 Alcohol Use Frequency: Daily - Recreational Drug Use Recreational Drug Use: No - Living Situation & Occupation Living situation: Reports: Occupation: Employed H&P Review of Systems - Review of Systems: Review Of Systems: See Below General: Denies: Fever, Chills, Malaise HEENT: Reports: No Symptoms. Denies: Headaches, Sore Throat, Vertigo Pulmonary: Reports: No Symptoms. Denies: Shortness of Breath Cardiovascular: Reports: Chest Pain (heaviness, which is now gone.), Blood Pressure Problem. Denies: Palpitations, Dyspnea on Exertion, Orthopnea, Edema, Lightheadedness Gastrointestinal: Reports: No Symptoms. Denies: Abdominal Pain, Decreased Appetite, Nausea, Vomiting Genitourinary: Reports: No Symptoms. Denies: Dysuria, Frequency, Burning Musculoskeletal: Reports: No Symptoms Skin: Reports: No Symptoms Psychiatric: Reports: No Symptoms. Denies: Confusion Neurological: Reports: No Symptoms Hematologic/Lymphatic: Reports: No Symptoms Immunologic: Reports: No Symptoms Exam - Exam Exam: See Below - Vital Signs Vital Signs: Last Vital Signs Temp 97.6 F 01/14/19 11:16 Pulse 85 01/14/19 13:20 Resp 16 01/14/19 13:20 BP 161/93 H 01/14/19 13:20 Pulse Ox 95 01/14/19 13:20 Weight: 83.915 kg - Exam General: Oriented, Cooperative HEENT: Conjunctiva Clear, Mucosa Moist & [place], Posterior Pharynx Clear Lungs: Clear to Auscultation, Normal Respiratory Effort Cardiovascular: Regular Rate, Regular Rhythm GI/Abdominal Exam: Normal Bowel Sounds, Soft, Non-Tender, No Organomegaly Back Exam: Normal Inspection, Full Range of Motion Extremities: Normal Inspection, Normal Range of Motion, Non-Tender, No Pedal Edema Neurological: Cranial Nerves Intact Neuro Extensive - Mental Status: Alert, Oriented x3 Neuro Extensive - Motor, Sensory, Reflexes: CN II-XII Intact Psychiatric: Alert, Normal Affect, Normal Mood - Patient Data Lab Results Last 24 hrs: Laboratory Results - last 24 hr 01/14/19 01/14/19 Range/Units 11:12 11:12 WBC 7.65 (4.0-11.0) K/uL RBC 4.87 (4.50-5.90) M/uL Hgb 16.0 (13.0-17.0) g/dL Hct 45.2 (38.0-50.0) % MCV 92.8 (80.0-98.0) fL MCH 32.9 H (27.0-32.0) pg MCHC 35.4 (31.0-37.0) g/dL RDW Std Deviation 46.4 (28.0-62.0) fl RDW Coeff of [place] 14 (11.0-15.0) % Plt Count 322 (150-400) K/uL MPV 9.30 (7.40-12.00) fL Neut % (Auto) 62.7 (48.0-80.0) % Lymph % (Auto) 20.7 (16.0-40.0) % Colbert % (Auto) 14.9 (0.0-15.0) % Eos % (Auto) 1.0 (0.0-7.0) % Baso % (Auto) 0.7 (0.0-1.5) % Neut # (Auto) 4.8 (1.4-5.7) K/uL Lymph # (Auto) 1.6 (0.6-2.4) K/uL Colbert # (Auto) 1.1 H (0.0-0.8) K/uL Eos # (Auto) 0.1 (0.0-0.7) K/uL Baso # (Auto) 0.1 (0.0-0.1) K/uL Nucleated RBC % 0.0 /100WBC Nucleated RBCs # 0 K/uL Sodium 128 L (136-148) mmol/L Potassium 3.7 (3.5-5.1) mmol/L Chloride 93 L (98-107) mmol/L Carbon Dioxide 23.1 (21.0-32.0) mmol/L BUN 5 L (7.0-18.0) mg/dL Creatinine 0.8 (0.8-1.3) mg/dL Est Cr Clr Drug Dosing 107.73 mL/min Estimated GFR (MDRD) > 60.0 ml/min Glucose 121 H (74-106) mg/dL Calcium 9.2 (8.5-10.1) mg/dL Total Bilirubin 0.7 (0.2-1.0) mg/dL AST 44 H (15-37) IU/L ALT 44 (14-63) IU/L Alkaline Phosphatase 92 (46-116) U/L Troponin I < 0.050 (0.000-0.056) ng/mL Total Protein 8.2 (6.4-8.2) g/dL Albumin 4.4 (3.4-5.0) g/dL Globulin 3.8 (2.6-4.0) g/dL Albumin/Globulin Ratio 1.2 (0.9-1.6) Result Diagrams: 01/14/19 11:12 01/14/19 11:12 EKG INTERPRETATION EKG Date: 01/14/19 Rhythm: NSR Rate (Beats/Min): 80 P-Wave: Present QRS: Other (LVH noted) ST-T: Normal (LVH noted) *Q Meaningful Use (ADM) - VTE Risk Assess *Q Each Risk Factor Represents 1 Point: Age 41 - 59 years, Obesity ( BMI > 25 kg/m2 ) Total Score 1 Point Risk Factors: 2 Each Risk Factor Represents 2 Points: None Total Score 2 Point Risk Factors: 0 Each Risk Factor Represents 3 Points: None Total Score 3 Point Risk Factors: 0 Each Risk Factor Represents 5 Points: None Total Score 5 Point Risk Factors: 0 Venous Thromboembolism Risk Factor Score *Q: 2 - Problem List (1) Chest pain SNOMED Code(s): 61180494 ICD Code: R07.9 - CHEST PAIN, UNSPECIFIED Status: Acute Current Visit: Yes Qualifiers: Chest pain type: unspecified Qualified Code(s): R07.9 - Chest pain, unspecified (2) Alcohol abuse SNOMED Code(s): 64337410 ICD Code: F10.10 - ALCOHOL ABUSE, UNCOMPLICATED Status: Chronic Current Visit: Yes (3) Hypertension SNOMED Code(s): 23523904 ICD Code: I10 - ESSENTIAL (PRIMARY) HYPERTENSION Status: Chronic Current Visit: No (4) Hyponatremia SNOMED Code(s): 02466610 ICD Code: E87.1 - HYPO-OSMOLALITY AND HYPONATREMIA Status: Chronic Current Visit: No Problem List Initiated/Reviewed/Updated: Yes Orders Last 24hrs: Active Orders 24 hr Category Date Time Status Patient Status [ADT] Stat ADT 01/14/19 13:18 Active Intake and Output [RC] QSHIFT Care 01/14/19 14:26 Ordered Oxygen Therapy [RC] PRN Care 01/14/19 14:26 Ordered Telemetry Monitoring [Cardiac Monitoring] [RC] . Care 01/14/19 14:25 Ordered DIRECTED Up With Assistance [RC] ASDIRECTED Care 01/14/19 14:26 Ordered VTE/DVT Education [RC] PER UNIT ROUTINE Care 01/14/19 14:26 Ordered Vital Signs [RC] Q4H Care 01/14/19 14:26 Ordered Heart Healthy Diet [DIET] Diet 01/14/19 Lunch Ordered GLYCOSYLATED HEMOGLOBIN,HGBA1C [CHEM] Routine Lab 01/14/19 14:26 Ordered LIPID PANEL [CHEM] AM Lab 01/15/19 05:11 Ordered TROPONIN I [CHEM] Q6H Lab 01/14/19 17:00 Ordered TROPONIN I [CHEM] Q6H Lab 01/14/19 23:00 Ordered Acetaminophen [Tylenol] Med 01/14/19 14:26 Ordered 650 mg PO Q4H PRN Enoxaparin [Lovenox] Med 01/14/19 14:30 Ordered 40 mg SUBCUT Q24H Ondansetron [Zofran] Med 01/14/19 14:26 Ordered 4 mg IVPUSH Q4H PRN Sodium Chloride 0.9% [Saline Flush] Med 01/14/19 11:17 Active 10 ml FLUSH ASDIRECTED PRN Sodium Chloride 0.9% [Saline Flush] Med 01/14/19 11:17 Active 2.5 ml FLUSH ASDIRECTED PRN Saline Lock Insert [OM.PC] Stat Oth 01/14/19 11:17 Ordered Resuscitation Status Routine Resus Stat 01/14/19 14:26 Ordered Medication Orders Sodium Chloride (Saline Flush) 10 ml FLUSH ASDIRECTED PRN PRN Reason: Keep Vein Open Last Admin: 01/14/19 11:26 Dose: 10 ml Sodium Chloride (Saline Flush) 2.5 ml FLUSH ASDIRECTED PRN PRN Reason: Keep Vein Open Last Admin: 01/14/19 11:26 Dose: 2.5 ml Assessment/Plan Comment:: This 53 year old male admitted with chest pain and hypertension 1. Chest pain: Monitor on telemetry, Trend troponins. Obtain lipid panel and A1c to further evaluate risk factors. Due to family history of CAD and HTN, would be a good idea to obtain outpatient stress test. Will also order ECHO due to LVH. Patient and are requesting outpatient appointment with [facility] , will arrange this and stress test. 2. HTN: Did not take Losartan and Norvasc this morning due to pain and coming to ED, will give now. Will also start Metoprolol tartrate 25 mg BID and monitor BP. 3. Alcohol abuse: Educated on cardiac risk of heavy alcohol use and encouraged sobriety. Continues Folic acid and thiamine. Will order CIWAA and Ativan protocol, reports he does not withdrawal at home. VTE prophylaxis; Lovenox Dispo: 1 day
[2019-01-14] MEDS ORDERED: Enoxaparin 40 MG/0.4 ML Syringe SUBCUT SCH (14:30)
[2019-01-14 14:59] LABS: HEMOGLOBIN A1C 5.4 % (4.5-6.2)
[2019-01-14] MEDS: Metoprolol Tartrate 25 MG Tab PO SCH (16:04)
[2019-01-14] MEDS: Losartan 50 MG Tab PO SCH (16:05)
[2019-01-14] MEDS: amLODIPine 5 MG Tab PO SCH (16:05)
[2019-01-14] MEDS ORDERED: LORazepam 2 MG/ML SDV IVPUSH PRN (16:13)
[2019-01-15] MEDS: Metoprolol Tartrate 25 MG Tab PO SCH (03:29)
[2019-01-15 05:51] LABS: CHLORIDE,CL 98 mmol/L (98-107); SODIUM,NA 134 mmol/L (136-148)
--- NOTE | 2019-01-15 07:43 | PCM.DCSUM1 ---
Discharge Summary - Hospital Course Diagnosis: Stroke: No - Discharge Data Discharge Date: 01/15/19 Discharge Disposition: Home, Self-Care 01 Condition: Good - Discharge Diagnosis/Problem(s) (1) Hypokalemia SNOMED Code(s): 15984758 ICD Code: E87.6 - HYPOKALEMIA Status: Resolved Priority: High (2) Alcohol abuse SNOMED Code(s): 19734917 ICD Code: F10.10 - ALCOHOL ABUSE, UNCOMPLICATED Status: Chronic Priority : High (3) Hypertension SNOMED Code(s): 20959344 ICD Code: I10 - ESSENTIAL (PRIMARY) HYPERTENSION Status: Chronic Priority : High Qualifiers: Hypertension type: essential hypertension Qualified Code(s): I10 - Essential (primary) hypertension (4) Chest pain SNOMED Code(s): 55766128 ICD Code: R07.9 - CHEST PAIN, UNSPECIFIED Status: Resolved Priority: High Qualifiers: Chest pain type: unspecified Qualified Code(s): R07.9 - Chest pain, unspecified - Patient Summary/Data Hospital Course: The patient is a 53-year-old gentleman who had been admitted on January 14, 2019 secondary to chest pain and hypertensive urgency. The patient initially had described this as heaviness. It had radiated to his back. Upon presentation the patient's blood pressure was 199 mmHg systolic. The patient also had been noted to be hyponatremic with a reading of 121 mmol per liter and this had improved by day of discharge to 134 mmol per liter. The patient also had 3 troponins which were otherwise undetectable. The patient had been kept on telemetry without events being noted. The patient had continued to improve to the short course of hospitalization and by day of discharge felt he could safely go home. The patient had been recommended to continue with his diet as tolerated. He's been advised to curtail alcohol usage. The patient also is to have activity as tolerated. He's otherwise been hemodynamically stable and he has been discharged from hospitalization with the recommendations above. - Patient Instructions Diet: Heart Healthy Diet Activity: As Tolerated - Discharge Plan *COPY OF PRESCRIPTION DRUG MONITORING REPORT IN PATIENT ALFRED: Yes Prescriptions/Med Rec: Metoprolol Tartrate [Lopressor] 25 mg PO Q12H #60 tablet Home Medications: Home Meds amLODIPine [Norvasc] 10 mg PO DAILY 12/20/17 [History] Cyanocobalamin/Folic Acid [Vitamin H62-Dmida Acid] 1 each PO DAILY 30 Days #30 tablet 12/21/17 [Rx] Losartan [Cozaar] 100 mg PO DAILY 90 Days #90 tablet 12/21/17 [Rx] Thiamine Mononitrate [Vitamin B-1] 100 mg PO DAILY 30 Days #30 tablet 12/21/17 [ Rx] Metoprolol Tartrate [Lopressor] 25 mg PO Q12H #60 tablet 01/15/19 [Rx] Patient Handouts: Exercise Stress Test, [id number], Nonspecific Chest Pain, [id number] Referrals: [facility] [Outside] Frederick Almaraz MD [Physician] - 02/14/19 11:00 am (Arrive 15 minutes early with an ID and insurance card) Parish Mccormick MD [Physician] - 01/22/19 10:30 am - Discharge Summary/Plan Comment DC Time >30 min.: Yes - General Info Date of Service: 01/15/19 Admission Dx/Problem (Free Text: Admission Diagnosis/Problem Admission Diagnosis/Problem Hypertensive urgency, atypical chest pain Functional Status: Reports: Pain Controlled - Review of Systems General: Reports: No Symptoms HEENT: Reports: No Symptoms Pulmonary: Reports: No Symptoms Cardiovascular: Reports: No Symptoms Gastrointestinal: Reports: No Symptoms Genitourinary: Reports: No Symptoms Musculoskeletal: Reports: No Symptoms Skin: Reports: No Symptoms Neurological: Reports: No Symptoms Psychiatric: Reports: No Symptoms - Patient Data Vitals - Most Recent: Last Vital Signs Temp 36.5 C 01/15/19 03:56 Pulse 72 01/15/19 03:56 Resp 16 01/15/19 03:56 BP 140/84 01/15/19 03:56 Pulse Ox 95 01/15/19 03:56 Weight - Most Recent: 83.915 kg I&O - Last 24 hours: Intake & Output 01/14/19 01/15/19 01/15/19 22:59 06:59 14:59 Intake Total 200 1000 Output Total 150 2950 Balance 50 -1950 Lab Results - Last 24 hrs: Laboratory Results - last 24 hr 01/14/19 01/14/19 01/14/19 Range/Units 11:12 11:12 11:18 WBC 7.65 (4.0-11.0) K/uL RBC 4.87 (4.50-5.90) M/uL Hgb 16.0 (13.0-17.0) g/dL Hct 45.2 (38.0-50.0) % MCV 92.8 (80.0-98.0) fL MCH 32.9 H (27.0-32.0) pg MCHC 35.4 (31.0-37.0) g/dL RDW Std Deviation 46.4 (28.0-62.0) fl RDW Coeff of [place] 14 (11.0-15.0) % Plt Count 322 (150-400) K/uL MPV 9.30 (7.40-12.00) fL Neut % (Auto) 62.7 (48.0-80.0) % Lymph % (Auto) 20.7 (16.0-40.0) % Blanco % (Auto) 14.9 (0.0-15.0) % Eos % (Auto) 1.0 (0.0-7.0) % Baso % (Auto) 0.7 (0.0-1.5) % Neut # (Auto) 4.8 (1.4-5.7) K/uL Lymph # (Auto) 1.6 (0.6-2.4) K/uL Blanco # (Auto) 1.1 H (0.0-0.8) K/uL Eos # (Auto) 0.1 (0.0-0.7) K/uL Baso # (Auto) 0.1 (0.0-0.1) K/uL Nucleated RBC % 0.0 /100WBC Nucleated RBCs # 0 K/uL Sodium 128 L (136-148) mmol/L Potassium 3.7 (3.5-5.1) mmol/L Chloride 93 L (98-107) mmol/L Carbon Dioxide 23.1 (21.0-32.0) mmol/L BUN 5 L (7.0-18.0) mg/dL Creatinine 0.8 (0.8-1.3) mg/dL Est Cr Clr Drug Dosing 107.73 mL/min Estimated GFR (MDRD) > 60.0 ml/min Glucose 121 H (74-106) mg/dL Hemoglobin A1c 5.4 (4.5-6.2) % Calcium 9.2 (8.5-10.1) mg/dL Total Bilirubin 0.7 (0.2-1.0) mg/dL AST 44 H (15-37) IU/L ALT 44 (14-63) IU/L Alkaline Phosphatase 92 (46-116) U/L Troponin I < 0.050 (0.000-0.056) ng/mL Total Protein 8.2 (6.4-8.2) g/dL Albumin 4.4 (3.4-5.0) g/dL Globulin 3.8 (2.6-4.0) g/dL Albumin/Globulin Ratio 1.2 (0.9-1.6) Triglycerides (0-200) mg/dL Cholesterol (50-200) mg/dL LDL Cholesterol, Calc (60-180) mg/dL VLDL Cholesterol (5-55) mg/dL HDL Cholesterol (40-60) mg/dL Cholesterol/HDL Ratio (3.3-6.0) 01/14/19 01/14/19 01/15/19 Range/Units 16:53 23:25 05:10 WBC (4.0-11.0) K/uL RBC (4.50-5.90) M/uL Hgb (13.0-17.0) g/dL Hct (38.0-50.0) % MCV (80.0-98.0) fL MCH (27.0-32.0) pg MCHC (31.0-37.0) g/dL RDW Std Deviation (28.0-62.0) fl RDW Coeff of [place] (11.0-15.0) % Plt Count (150-400) K/uL MPV (7.40-12.00) fL Neut % (Auto) (48.0-80.0) % Lymph % (Auto) (16.0-40.0) % Blanco % (Auto) (0.0-15.0) % Eos % (Auto) (0.0-7.0) % Baso % (Auto) (0.0-1.5) % Neut # (Auto) (1.4-5.7) K/uL Lymph # (Auto) (0.6-2.4) K/uL Blanco # (Auto) (0.0-0.8) K/uL Eos # (Auto) (0.0-0.7) K/uL Baso # (Auto) (0.0-0.1) K/uL Nucleated RBC % /100WBC Nucleated RBCs # K/uL Sodium 134 L (136-148) mmol/L Potassium 3.8 (3.5-5.1) mmol/L Chloride 98 (98-107) mmol/L Carbon Dioxide 24.7 (21.0-32.0) mmol/L BUN 8 (7.0-18.0) mg/dL Creatinine 0.7 L (0.8-1.3) mg/dL Est Cr Clr Drug Dosing 126.99 mL/min Estimated GFR (MDRD) > 60.0 ml/min Glucose 108 H (74-106) mg/dL Hemoglobin A1c (4.5-6.2) % Calcium 8.7 (8.5-10.1) mg/dL Total Bilirubin (0.2-1.0) mg/dL AST (15-37) IU/L ALT (14-63) IU/L Alkaline Phosphatase (46-116) U/L Troponin I < 0.050 < 0.050 (0.000-0.056) ng/mL Total Protein (6.4-8.2) g/dL Albumin (3.4-5.0) g/dL Globulin (2.6-4.0) g/dL Albumin/Globulin Ratio (0.9-1.6) Triglycerides 103 (0-200) mg/dL Cholesterol 209 H (50-200) mg/dL LDL Cholesterol, Calc 123 (60-180) mg/dL VLDL Cholesterol 20 (5-55) mg/dL HDL Cholesterol 65 H (40-60) mg/dL Cholesterol/HDL Ratio 3.2 L (3.3-6.0) Med Orders - Current: Current Medications Acetaminophen (Tylenol) 650 mg PO Q4H PRN PRN Reason: Pain (mild 1-3) Amlodipine Besylate (Norvasc) 10 mg PO DAILY [facility] Last Admin: 01/14/19 16:05 Dose: 10 mg Enoxaparin Sodium (Lovenox) 40 mg SUBCUT Q24H [facility] Last Admin: 01/14/19 15:10 Dose: 40 mg Lorazepam (Ativan) 0 mg IVPUSH Q4H PRN; Protocol PRN Reason: CIWAA Losartan Potassium (Cozaar) 100 mg PO DAILY [facility] Last Admin: 01/14/19 16:05 Dose: 100 mg Metoprolol Tartrate (Lopressor) 25 mg PO Q12H [facility] Last Admin: 01/15/19 03:29 Dose: 25 mg Ondansetron HCl (Zofran) 4 mg IVPUSH Q4H PRN PRN Reason: Nausea Cyanocobalamin/Folic Acid [Vitamin B12- Folic Acid] 1 Each 1 each PO DAILY [facility] Sodium Chloride (Saline Flush) 10 ml FLUSH ASDIRECTED PRN PRN Reason: Keep Vein Open Last Admin: 01/14/19 11:26 Dose: 10 ml Sodium Chloride (Saline Flush) 2.5 ml FLUSH ASDIRECTED PRN PRN Reason: Keep Vein Open Last Admin: 01/14/19 11:26 Dose: 2.5 ml Thiamine HCl (Vitamin B-1) 100 mg PO DAILY [facility] Discontinued Medications Aspirin (Aspirin) 324 mg PO ONETIME ONE Stop: 01/14/19 11:17 Last Admin: 01/14/19 11:27 Dose: 324 mg Diphenhydramine HCl (Benadryl) 25 mg IVPUSH ONETIME ONE Stop: 01/14/19 12:42 Last Admin: 01/14/19 12:50 Dose: 25 mg Sodium Chloride (Normal Saline) 1,000 mls @ 999 mls/hr IV .Bolus ONE Stop: 01/14/19 13:07 Last Admin: 01/14/19 12:11 Dose: 999 mls/hr Iopamidol (Isovue Multipack-370 (76%)) 100 ml IVPUSH ONETIME ONE Stop: 01/14/19 12:50 Last Admin: 01/14/19 12:50 Dose: 100 ml Labetalol HCl (Normodyne) 20 mg IVPUSH NOW ONE; Protocol Stop: 01/14/19 12:09 Last Admin: 01/14/19 13:11 Dose: Not Given Metoprolol Tartrate (Lopressor) 5 mg IVPUSH Q5M [facility] Stop: 01/14/19 11:41 Last Admin: 01/14/19 11:52 Dose: 5 mg Morphine Sulfate (Morphine) 2 mg IVPUSH ONETIME ONE Stop: 01/14/19 11:49 Last Admin: 01/14/19 12:07 Dose: 2 mg Nitroglycerin (Nitrostat) 0.4 mg SL Q5M PRN PRN Reason: Chest Pain Last Admin: 01/14/19 11:43 Dose: 0.4 mg Ondansetron HCl (Zofran) 4 mg IVPUSH ONETIME ONE Stop: 01/14/19 11:49 Last Admin: 01/14/19 12:07 Dose: 4 mg - Exam Quality Assessment: Denies: Supplemental Oxygen General: Reports: Alert, Oriented, Cooperative, No Acute Distress HEENT: Reports: Pupils Equal, Pupils Reactive, EOMI Neck: Reports: Supple, Trachea Midline Lungs: Reports: Clear to Auscultation, Normal Respiratory Effort Cardiovascular: Reports: Regular Rate, Regular Rhythm GI/Abdominal Exam: Normal Bowel Sounds, Soft, Non-Tender, No Distention Back Exam: Reports: Normal Inspection, Full Range of Motion Extremities: Normal Inspection, Normal Range of Motion, No Pedal Edema Skin: Reports: Warm, Dry, Intact Neurological: Reports: No New Focal Deficit Psy/Mental Status: Reports: Alert, Normal Affect
[2019-01-15] MEDS ORDERED: FOLIC ACID PO SCH (09:00)
[2019-01-15] MEDS ORDERED: CYANOCOBALAMIN PO SCH (09:00)
[2019-01-15] MEDS ORDERED: Thiamine 100 MG Tab PO SCH (09:00)
[2019-01-15] MEDS: amLODIPine 5 MG Tab PO SCH (09:37)
[2019-01-15] MEDS: Losartan 50 MG Tab PO SCH (09:37)
--- NOTE | 2019-01-20 16:14 | ECHO ---
EXAM DATE: 01/14/19 PATIENT'S AGE: 53 The echocardiogram report can be seen in this patient's EMR (Electronic Medical Record) in the Reports section. The report has also been scanned into PACs. DENISE
== END 2019-01-15 10:00 | disposition home or self-care (01) ==
LOC: MW.ED 11:02 → MW.MS 13:40
PROVIDERS: ADMIT Internal Medicine; ATTEND Internal Medicine
DX: R07.89 Other chest pain (principal); I16.0 Hypertensive urgency; E87.6 Hypokalemia; E87.1 Hypo-osmolality and hyponatremia; I10 Essential (primary) hypertension; F10.10 Alcohol abuse, uncomplicated; Z82.49 Family history of ischemic heart disease and other diseases of the circulatory system; Z79.899 Other long term (current) drug therapy
CPT/HCPCS: 36415; 71045; 71275; 74174; 80048; 80053; 80061; 83036; 84484; 85025; 93005; 93306; 96361; 96372; 96374; 96375; 99285; A9270; G0378; J1200; J1650; J2270; J2405; J3490; J7040; Q9967

== ENCOUNTER 2023-06-17 08:33 | Emergency (ER) | payer BC, OTHER ==
[2023-06-17] MEDS ORDERED: Acetaminophen/oxyCODONE 325-5 MG Tab PO ONE (08:49)
[2023-06-17] MEDS ORDERED: Ibuprofen 600 MG Tab PO ONE (08:49)
== END 2023-06-17 11:20 | disposition home or self-care (01) ==
LOC: MW.ED 08:33
DX: S22.20XA Unspecified fracture of sternum, initial encounter for closed fracture (principal); I10 Essential (primary) hypertension; Z86.73 Personal history of transient ischemic attack (TIA), and cerebral infarction without residual deficits; Z79.899 Other long term (current) drug therapy; W01.0XXA Fall on same level from slipping, tripping and stumbling without subsequent striking against object, initial encounter
CPT/HCPCS: 71250; 73030; 99285; A9270; 99283